=== PATIENT | female | born 1965 | race Caucasian/White ===

== ENCOUNTER 2020-02-05 13:51 | Emergency (ER) | payer SELFPAY ==
[~2020-02-05] VITALS: Ht 152.4 cm; Wt 54.4 kg
[2020-02-05 14:30] VITALS: BP 122/60
--- NOTE | 2020-02-05 14:30 | NUR ---
Pt triaged in COVID tent, left outside for isolation precautions.
--- NOTE | 2020-02-05 14:35 | NUR ---
54/F C/O COUGH X4 DAYS; STATES TESTED POSITIVE 2 WEEKS AGO. PT REPORTS HAVING INTERMITTENT COUGH X4 DAYS. DENIES FEVER. DENIES SOB. HX DENIES
--- NOTE | 2020-02-05 14:51 | NUR ---
Patient being evaluated by BOO Perez in covid tent.
--- NOTE | 2020-02-05 15:00 | NUR ---
COVID swab collected and sent to lab.
[2020-02-05 15:10] VITALS: BP 122/60
--- NOTE | 2020-02-05 15:11 | NUR ---
Patient discharged with v/s stable. Written and verbal after care instructions given and explained. Patient verbalized understanding. Ambulatory with steady gait. All questions addressed prior to discharge. Advised to follow up with PMD.
== END 2020-02-05 15:11 | disposition home or self-care (01) ==
LOC: MED 13:51
DX: R05 Cough (principal); R42 Dizziness and giddiness; Z20.828 Contact with and (suspected) exposure to other viral communicable diseases
CPT/HCPCS: 99283; U0003